=== PATIENT | male | born 1960 | race Two or more races ===

== ENCOUNTER 2019-02-08 13:42 | Emergency (ER) | payer OTHER ==
[~2019-02-08] VITALS: Ht 175.3 cm; Wt 68.0 kg
--- NOTE | 2019-02-08 14:16 | NUR ---
Hoang khalil in [facility] - 02/08/19 at 1416 by ANA PATIENT SEEN BY DR. VANGIE MATHEW.
[2019-02-08 14:52] VITALS: BP 136/75
[2019-02-08] MEDS ORDERED: HYDROCODONE/APAP 5/325MG 1 EACH TABLET ONE (15:17)
[2019-02-08] MEDS ORDERED: HYDROCODONE/APAP 5/325MG 1 EACH TABLET PO ONE (15:30)
== END 2019-02-08 15:22 | disposition home or self-care (01) ==
LOC: ER 13:42
DX: K40.90 Unilateral inguinal hernia, without obstruction or gangrene, not specified as recurrent (principal)

== ENCOUNTER 2019-05-03 12:29 | Emergency (ER) | payer OTHER ==
[~2019-05-03] VITALS: Ht 175.3 cm; Wt 69.9 kg
--- NOTE | 2019-05-03 12:40 | NUR ---
GERMAINE FROM HOME C/O BACK PAIN AND SPASMS X 2 DAYS. DENIES RECENT INJURY. PATIENT A/OX4, BREATHING EVEN AND UNLABORED, NO DISTRESS NOTED. KEPT COMFORTABLE. ATTACHED TO THE MONITOR.
[2019-05-03] MEDS ORDERED: ONDANSETRON HCL/PF 4 MG/2 ML VIAL ONE (12:52)
[2019-05-03] MEDS ORDERED: methylPREDNISolone SOD SUCC 125 MG/2ML VIAL ONE (12:52)
[2019-05-03] MEDS ORDERED: MORPHINE SULFATE INJ 4 MG/ML DISP.SYRIN ONE (12:52)
[2019-05-03] MEDS ORDERED: KETOROLAC TROMETHAMINE INJ 30 MG/ML VIAL ONE ×5 (12:52)
[2019-05-03 12:58] LABS: BASOPHILS % (AUTO) 0.3 % (0.0-2.0); EOSINOPHILS % (AUTO) 0.1 % (0.0-6.0); HEMATOCRIT 39 % (39-51); HEMOGLOBIN 13.4 g/dL (13.5-17.5); LYMPHOCYTES # (AUTO) 0.9 /CMM (0.8-4.8); LYMPHOCYTES % (AUTO) 8.5 % (20.0-44.0); MEAN CORPUSCULAR HGB CONC 35 g/dl (31.0-36.0); MEAN CORPUSCULAR VOLUME 96 fL (80-96); MONOCYTES % (AUTO) 9.9 % (2.0-12.0); NEUTROPHILS # (AUTO) 8.4 /CMM (1.8-8.9); NEUTROPHILS % (AUTO) 81.2 % (43.0-81.0); PLATELET COUNT (AUTO) 185 /CMM (150-450); RED BLOOD CELL COUNT(AUTO) 4.05 MIL/uL (4.5-6.0); WHITE BLOOD COUNT (AUTO) 10.3 K/uL (4.3-11.0)
[2019-05-03] MEDS: ONDANSETRON HCL/PF 4 MG/2 ML VIAL IVP ONE (13:00)
[2019-05-03] MEDS: IV NS 0.9% 1,000 ML BAG IV ONE (13:03)
[2019-05-03] MEDS: MORPHINE SULFATE INJ 2 MG/ML DISP.SYRIN IV ONE (13:04)
[2019-05-03] MEDS: KETOROLAC TROMETHAMINE INJ 30 MG/ML VIAL IV ONE (13:04)
[2019-05-03] MEDS: methylPREDNISolone SOD SUCC 125 MG/2ML VIAL IV ONE (13:04)
[2019-05-03 13:09] LABS: CALCIUM, SERUM 8.9 mg/dL (8.5-10.1); CREATININE 1.1 mg/dL (0.6-1.3); POTASSIUM 3.3 mmol/L (3.5-5.1)
--- NOTE | 2019-05-03 14:23 | NUR ---
Patient discharged to home in stable condition. Written and verbal after care instructions given. Patient verbalizes understanding of instruction. IV removed. Catheter intact and site benign. Pressure and 4x4 applied to site. No bleeding noted. AMBULATED WITH STEADY GAIT. PT STATES HE WILL TAKE UBER HOME. Addendum: 05/03/19 at 1424 by HFOX INSTRUCTED NOT TO DRIVE
[2019-05-03 14:26] VITALS: BP 114/67
== END 2019-05-03 14:27 | disposition home or self-care (01) ==
LOC: ER 12:29
DX: M54.5 Low back pain (principal); N40.0 Benign prostatic hyperplasia without lower urinary tract symptoms
CPT/HCPCS: 36415; 72131; 80048; 85025; 96374; 96375; 99284; J1885; J2270; J2405; J2930; J7030

== ENCOUNTER 2019-05-06 21:20 | Emergency (ER) | payer OTHER ==
[~2019-05-06] VITALS: Ht 175.3 cm; Wt 63.5 kg
--- NOTE | 2019-05-06 21:45 | NUR ---
BIBSELF WITH SIGNIFICANT OTHER. TO ER BED 11. AAOX4. NO RESP DISTRESS. IN PAIN, SCREAMING ANG YELLING. C/O BACK PAIN SHOOTING DOWN BOTH LEGS WHICH HAS BEEN GOING ON FOR THE PAST 4 MONTH PER SIGNIFICANT OTHER REPORT. AWAITING MD FOR EVAL.
[2019-05-06] MEDS ORDERED: HYDROMORPHONE 1 MG/1 ML DISP.SYRIN ONE (23:17)
[2019-05-06] MEDS ORDERED: HYDROMORPHONE 1 MG/1 ML DISP.SYRIN IM ONE (23:30)
[2019-05-07] MEDS ORDERED: ONDANSETRON HCL/PF 4 MG/2 ML VIAL ONE (00:57)
--- NOTE | 2019-05-07 01:00 | NUR ---
PT VOMITTED X 1 EPSIODE. AWARE. VERBAL ORDER RECEIVED FOR ZOFRAN 4MG IM. NOTED CARRIED OUT
[2019-05-07] MEDS ORDERED: ONDANSETRON HCL/PF 4 MG/2 ML VIAL IM ONE (01:30)
--- NOTE | 2019-05-07 07:22 | NUR ---
RECEIVED REPORT FROM PRIYANKA CORDERO FOR ANNIKA, PT STILL IN PAIN, AAOX3, NOT IN RESPIRATORY DISTRESS, KEPT RESTED AND COMFORTABLE, WILL CONTINUE TO MONITOR.
--- NOTE | 2019-05-07 07:41 | NUR ---
PT ENDORSED TO PRIYANKA HYATT FOR ANNIKA
[2019-05-07] MEDS ORDERED: KETOROLAC TROMETHAMINE INJ 30 MG/ML VIAL ONE (10:58)
[2019-05-07] MEDS ORDERED: KETOROLAC TROMETHAMINE INJ 30 MG/ML VIAL IV ONE ×2 (11:00→19:00)
--- NOTE | 2019-05-07 11:15 | NUR ---
SPOKE TO [employer] DEVELOPER, NO ROOM AVAILABLE IN [facility], WILL CALL BACK FOR UPDATE.
[2019-05-07] MEDS ORDERED: HYDROMORPHONE 1 MG/1 ML DISP.SYRIN ONE (13:21)
[2019-05-07] MEDS ORDERED: HYDROMORPHONE 1 MG/1 ML DISP.SYRIN IV ONE (13:30)
[2019-05-07] MEDS ORDERED: METOCLOPRAMIDE HCL 10 MG/2 ML VIAL IV ONE (14:00)
[2019-05-07] MEDS ORDERED: PANTOPRAZOLE 40 MG VIAL IV ONE (14:00)
[2019-05-07] MEDS ORDERED: diphenhydrAMINE HCL 50 MG/ML VIAL IV ONE (14:00)
--- NOTE | 2019-05-07 14:00 | NUR ---
ER PHLEB AT BEDSIDE FOR BLOOD DRAW.
--- NOTE | 2019-05-07 14:08 | NUR ---
AIR TRAFFIC SUPERVISOR AT BEDSIDE FOR XRAY.
[2019-05-07 14:10] LABS: BASOPHILS % (AUTO) 0.1 % (0.0-2.0); EOSINOPHILS % (AUTO) 0.4 % (0.0-6.0); HEMATOCRIT 37 % (39-51); HEMOGLOBIN 12.6 g/dL (13.5-17.5); LYMPHOCYTES # (AUTO) 1.2 /CMM (0.8-4.8); LYMPHOCYTES % (AUTO) 13.3 % (20.0-44.0); MEAN CORPUSCULAR HGB CONC 34 g/dl (31.0-36.0); MEAN CORPUSCULAR VOLUME 98 fL (80-96); MONOCYTES # (AUTO) 0.8 /CMM (0.1-1.30); MONOCYTES % (AUTO) 8.9 % (2.0-12.0); NEUTROPHILS # (AUTO) 6.7 /CMM (1.8-8.9); NEUTROPHILS % (AUTO) 77.3 % (43.0-81.0); PLATELET COUNT (AUTO) 170 /CMM (150-450); RED BLOOD CELL COUNT(AUTO) 3.78 MIL/uL (4.5-6.0); WHITE BLOOD COUNT (AUTO) 8.7 K/uL (4.3-11.0)
[2019-05-07 14:15] LABS: ALCOHOL, BLOOD < 3 mg/dL (0-0)
[2019-05-07 14:30] LABS: CALCIUM, SERUM 8.7 mg/dL (8.5-10.1); POTASSIUM 3.7 mmol/L (3.5-5.1)
[2019-05-07 14:36] LABS: ALBUMIN 2.4 g/dL (3.4-5.0); BILIRUBIN,DIRECT 0.1 mg/dL (0.0-0.2); BILIRUBIN,TOTAL 0.5 mg/dL (0.2-1.0); TOTAL PROTEIN, SERUM 6.1 g/dL (6.4-8.2)
--- NOTE | 2019-05-07 16:24 | NUR ---
PT ACCEPTED TO [facility], ROOM 307-a REPORT TO ERNST MATHEW [phone] ETA FOR TRANSPORT PENDING
--- NOTE | 2019-05-07 17:10 | NUR ---
REPORT GIVEN TO PRIYANKA TANG OF [facility] FOR ANNIKA.
[2019-05-07] MEDS ORDERED: KETOROLAC TROMETHAMINE 15 MG/ML VIAL ONE (18:41)
--- NOTE | 2019-05-07 19:31 | NUR ---
CALLED [facility] TRIP NUMBER IS [id number] ETA IS [id number]
--- NOTE | 2019-05-07 19:42 | NUR ---
PT RECEIVED FROM EDMAR RN FOR ANNIKA. PT AWAITING TRANSPORT TO [facility]
--- NOTE | 2019-05-07 20:19 | NUR ---
UPDATED PRIYANKA DE OLIVEIRA OF [facility] FOR PT ETA
--- NOTE | 2019-05-07 21:01 | NUR ---
AMBUL[facility] UPDATED ETA 21:20
[2019-05-07 21:30] VITALS: BP 99/44
--- NOTE | 2019-05-07 21:30 | NUR ---
TONIA 321 AT BEDSIDE FOR PT TRANSPORT TO [facility]. PT IS STABLE FOR TRANSPORT. REPORT GIVEN.
== END 2019-05-07 22:13 | disposition short-term general hospital (02) ==
LOC: ER 21:20
DX: G89.29 Other chronic pain (principal); M54.42 Lumbago with sciatica, left side; M54.41 Lumbago with sciatica, right side
CPT/HCPCS: 36415; 80048; 80076; 80307; 83690; 84484; 85025; 96372 ×2; 96374; 96375; 96376; 99285; J1170 ×2; J1885 ×2; J2405; J7030; G0480

== ENCOUNTER 2019-06-02 13:25 | Emergency (ER) | payer OTHER ==
[~2019-06-02] VITALS: Ht 175.3 cm; Wt 70.3 kg
--- NOTE | 2019-06-02 13:25 | NUR ---
"BIB RA 39 FROM HOME,CHRONIC BACK PAIN GOT WORSE TODAY,NO TRAUMA" PT AAOX4, -SOB, NAD NOTED, VSS, PENDING MD BERRY
[2019-06-02 14:22] LABS: BASOPHILS # (AUTO) 0.1 /CMM (0.0-0.2); BASOPHILS % (AUTO) 1.1 % (0.0-2.0); EOSINOPHILS % (AUTO) 0.6 % (0.0-6.0); HEMATOCRIT 31 % (39-51); HEMOGLOBIN 10.6 g/dL (13.5-17.5); LYMPHOCYTES # (AUTO) 1.2 /CMM (0.8-4.8); MEAN CORPUSCULAR HGB CONC 34 g/dl (31.0-36.0); MEAN CORPUSCULAR VOLUME 93 fL (80-96); MONOCYTES # (AUTO) 1.1 /CMM (0.1-1.30); MONOCYTES % (AUTO) 10.4 % (2.0-12.0); NEUTROPHILS # (AUTO) 7.9 /CMM (1.8-8.9); NEUTROPHILS % (AUTO) 75.9 % (43.0-81.0); PLATELET COUNT (AUTO) 711 /CMM (150-450); RED BLOOD CELL COUNT(AUTO) 3.33 MIL/uL (4.5-6.0); WHITE BLOOD COUNT (AUTO) 10.3 K/uL (4.3-11.0)
[2019-06-02 14:28] LABS: CALCIUM, SERUM 9.3 mg/dL (8.5-10.1); CREATININE 1.2 mg/dL (0.6-1.3); POTASSIUM 3.2 mmol/L (3.5-5.1)
[2019-06-02] MEDS ORDERED: ONDANSETRON HCL/PF 4 MG/2 ML VIAL IVP ONE (14:30)
[2019-06-02] MEDS ORDERED: methylPREDNISolone SOD SUCC 125 MG/2ML VIAL IV ONE (14:30)
[2019-06-02] MEDS ORDERED: MORPHINE SULFATE INJ 2 MG/ML DISP.SYRIN IV ONE (14:30)
[2019-06-02] MEDS ORDERED: KETOROLAC TROMETHAMINE INJ 30 MG/ML VIAL IV ONE (14:30)
[2019-06-02] MEDS ORDERED: IV NS 0.9% 1,000 ML BAG IV ONE (14:30)
[2019-06-02] MEDS ORDERED: MORPHINE SULFATE INJ 2 MG/ML DISP.SYRIN ONE (14:39)
[2019-06-02] MEDS ORDERED: ONDANSETRON HCL/PF 4 MG/2 ML VIAL ONE (14:39)
[2019-06-02] MEDS ORDERED: methylPREDNISolone SOD SUCC 125 MG/2ML VIAL ONE (14:39)
[2019-06-02] MEDS ORDERED: MORPHINE SULFATE INJ 4 MG/ML DISP.SYRIN ONE (14:39)
[2019-06-02] MEDS ORDERED: KETOROLAC TROMETHAMINE INJ 30 MG/ML VIAL ONE (14:39)
[2019-06-02] MEDS ORDERED: TERA10CA4 PO (16:28)
[2019-06-02] MEDS ORDERED: HYDR-3972 PO (16:28)
[2019-06-02] MEDS ORDERED: NAPR500T6 PO (16:28)
[2019-06-02] MEDS ORDERED: SERT100T PO (16:28)
[2019-06-02] MEDS ORDERED: GABA600T12 PO (16:28)
[2019-06-02] MEDS ORDERED: FLEXERIL PO (16:32)
--- NOTE | 2019-06-02 19:26 | NUR ---
Patient discharged to home in stable condition. Written and verbal after care instructions given. Patient verbalizes understanding of instruction. IV removed. Catheter intact and site benign. Pressure and 4x4 applied to site. No bleeding noted.
[2019-06-02 19:35] VITALS: BP 132/80
== END 2019-06-02 19:35 | disposition home or self-care (01) ==
LOC: ER 13:36
DX: M54.40 Lumbago with sciatica, unspecified side (principal); G89.29 Other chronic pain; Z79.899 Other long term (current) drug therapy
CPT/HCPCS: 36415; 80048; 80305; 80307; 85025; 96374; 96375; 99283; J1885; J2270 ×2; J2405; J2930; J7030; G0480